=== PATIENT | male | born 1945 | race Caucasian/White ===

== ENCOUNTER 2018-07-06 16:01 | Inpatient (IN) | payer MEDICARE, MEDICAID ==
[~2018-07-06] VITALS: Ht 170.2 cm; Wt 61.5 kg
[2018-07-06] MEDS ORDERED: CEFTRIAXONE 1 G PREMIX 50 ML IV ONE (17:15)
[2018-07-06] MEDS ORDERED: SODIUM CHLORIDE 0.9% 1000ML BAG (SEPSIS BOLUS) IV ONE (17:15)
[2018-07-06 17:44] LABS: CLARITY URINE CLOUDY (CLEAR); COLOR URINE YELLOW (YELLOW); KETONES URINE NEGATIVE (NEGATIVE); LEUKOCYTE ESTERASE URINE TRACE (NEGATIVE); NITRITE URINE POSITIVE (NEGATIVE); OCCULT BLOOD URINE TRACE (NEGATIVE); PROTEIN URINE 1+ (NEGATIVE); SPECIFIC GRAVITY URINE 1.015 (1.005-1.030); UROBILINOGEN URINE 0.2 E.U./dL (0.2-1.0)
[2018-07-06 17:50] LABS: BASOPHILS % 0.3 % (0.0-2.0); CHLORIDE 96 mEq/L (98-107); HEMATOCRIT. 28.3 % (42.0-52.0); HEMOGLOBIN. 9.6 g/dL (14.0-18.0); LYMPHOCYTES % 7.7 % (20.0-50.0); MEAN CORPUSCULAR HEMOGLOBIN 28.8 pg (28.0-32.0); MEAN CORPUSCULAR VOLUME 85.1 fL (80.0-94.0); MEAN PLATELET VOLUME 7.1 fl (7.4-10.4); MONOCYTES % 10.1 % (2.0-8.0); NEUTROPHILS % 80.9 % (40.0-76.0); PLATELET 324 x1000/uL (130-400); RED BLOOD CELL COUNT 3.33 mill/uL (4.7-6.1); RED CELL DISTRIBUTION WIDTH 15.9 % (11.6-14.6)
[2018-07-06] MEDS ORDERED: CLONIDINE 0.1MG TABLET PO PRN (21:15)
[2018-07-06] MEDS ORDERED: HYDROCODONE/ACETAMINOPHEN 5/325MG TABLET PO PRN (21:15)
[2018-07-06] MEDS ORDERED: ONDANSETRON HCL 4MG/2ML INJ IV PRN (21:15)
[2018-07-07] VITALS (7 sets, daily range): BP systolic 100–151; BP diastolic 59–75
[2018-07-07] MEDS: SODIUM CHLORIDE 0.9% 1,000 ML IV SCH ×3 (01:14→21:51)
[2018-07-07] MEDS ORDERED: GLIP10TA10 MT (02:19)
[2018-07-07] MEDS ORDERED: HYDR12.529 PO (02:19)
[2018-07-07] MEDS ORDERED: AMLO5TAB88 PO ×2 (02:22)
[2018-07-07] MEDS ORDERED: [UNRECOGNIZED DRUG - OTHER] PO (02:25)
[2018-07-07] MEDS ORDERED: TAMS0.4C31 PO (02:25)
[2018-07-07] MEDS ORDERED: DEXTROSE 50% WATER 50ML SYRINGE IV PRN (04:15)
[2018-07-07] MEDS: BLOOD SUGAR DIAGNOSTIC STRIP TEST SCH ×4 (06:21→21:36)
[2018-07-07] MEDS: INSULIN LISPRO 100 UNITS/ML SUBCUT SCH ×4 (07:05→21:00)
[2018-07-07 09:04] LABS: BASOPHILS % 0.4 % (0.0-2.0); EOSINOPHILS % 1.1 % (0.0-5.0); HEMATOCRIT. 29.1 % (42.0-52.0); HEMOGLOBIN. 9.8 g/dL (14.0-18.0); MEAN CORPUSCULAR HEMOGLOBIN 28.7 pg (28.0-32.0); MEAN CORPUSCULAR VOLUME 85.6 fL (80.0-94.0); MEAN PLATELET VOLUME 6.7 fl (7.4-10.4); MONOCYTES % 10.5 % (2.0-8.0); PLATELET 330 x1000/uL (130-400)
[2018-07-07] MEDS: THIAMINE HCL 100MG TABLET PO SCH (09:37)
[2018-07-07] MEDS: ENOXAPARIN 40MG/0.4ML SYR SUBCUT SCH (09:37)
[2018-07-07] MEDS: INSULIN GLARGINE UD 100 UNITS/ML SYR SUBCUT SCH ×2 (10:00→21:50)
[2018-07-07 13:16] LABS: ETHANOL BLOOD < 10 mg/dL
[2018-07-07 13:21] LABS: T4 FREE 1.59 ng/dL (0.76-1.46)
[2018-07-07 13:32] LABS: FOLIC ACID (FOLATE) SERUM 14.4 ng/mL (>5.38)
[2018-07-07] MEDS: AMLODIPINE 5MG TABLET PO SCH ×2 (13:46→21:00)
[2018-07-07] MEDS: FERROUS SULFATE 325MG TABLET PO SCH ×2 (13:46→18:51)
[2018-07-07 13:59] LABS: *BARBITURATES SCREEN URINE NEGATIVE (NEGATIVE); *BENZODIAZEPINES SCREEN URINE NEGATIVE (NEGATIVE); *COCAINE SCREEN URINE NEGATIVE (NEGATIVE); METHADONE URINE SCREEN NEGATIVE (NEGATIVE)
[2018-07-07 14:00] LABS: *AMPHETAMINES SCREEN URINE NEGATIVE (NEGATIVE); CANNABINOID URINE SCREEN NEGATIVE (NEGATIVE); OPIATES URINE SCREEN NEGATIVE (NEGATIVE); PHENCYCLIDINE URINE SCREEN NEGATIVE (NEGATIVE)
[2018-07-07] MEDS ORDERED: CEFTRIAXONE 1 G PREMIX 50 ML IV SCH (18:00)
[2018-07-07] MEDS: ACETAMINOPHEN 325MG TABLET PO PRN (18:54)
[2018-07-07] MEDS: TAMSULOSIN HCL 0.4MG SR CAPSULE PO SCH (21:35)
[2018-07-08] VITALS: BP 143/73
[2018-07-08 04:00] VITALS: BP 142/104
[2018-07-08] MEDS: FERROUS SULFATE 325MG TABLET PO SCH ×3 (04:43→17:11)
[2018-07-08] MEDS: SODIUM CHLORIDE 0.9% 1,000 ML IV SCH ×2 (04:43→17:21)
[2018-07-08] MEDS: BLOOD SUGAR DIAGNOSTIC STRIP TEST SCH ×4 (06:03→21:12)
[2018-07-08] MEDS: ACETAMINOPHEN 325MG TABLET PO PRN ×2 (06:03→17:20)
[2018-07-08] MEDS: INSULIN LISPRO 100 UNITS/ML SUBCUT SCH ×4 (06:06→21:12)
[2018-07-08 06:23] LABS: BASOPHILS % 0.5 % (0.0-2.0); HEMATOCRIT. 29.4 % (42.0-52.0); HEMOGLOBIN. 9.7 g/dL (14.0-18.0); LYMPHOCYTES % 11.9 % (20.0-50.0); MEAN CORPUSCULAR HEMOGLOBIN 28.3 pg (28.0-32.0); MEAN CORPUSCULAR VOLUME 85.4 fL (80.0-94.0); MEAN PLATELET VOLUME 6.9 fl (7.4-10.4); MONOCYTES % 10.4 % (2.0-8.0); NEUTROPHILS % 75.2 % (40.0-76.0); PLATELET 375 x1000/uL (130-400); RED BLOOD CELL COUNT 3.44 mill/uL (4.7-6.1); RED CELL DISTRIBUTION WIDTH 16.2 % (11.6-14.6)
[2018-07-08 08:00] VITALS: BP 115/75
[2018-07-08] MEDS: ENOXAPARIN 40MG/0.4ML SYR SUBCUT SCH (08:13)
[2018-07-08] MEDS: TAMSULOSIN HCL 0.4MG SR CAPSULE PO SCH ×2 (08:13→21:09)
[2018-07-08] MEDS: AMLODIPINE 5MG TABLET PO SCH ×2 (08:13→21:09)
[2018-07-08] MEDS: THIAMINE HCL 100MG TABLET PO SCH (08:13)
[2018-07-08] MEDS: INSULIN GLARGINE UD 100 UNITS/ML SYR SUBCUT SCH ×2 (10:41→21:20)
[2018-07-08 20:00] VITALS: BP 130/70
[2018-07-08] MEDS ORDERED: CEFTRIAXONE 1 G PREMIX 50 ML IV SCH (20:00)
[2018-07-09] VITALS: BP 133/52
[2018-07-09] MEDS: SODIUM CHLORIDE 0.9% 1,000 ML IV SCH ×2 (00:44→10:33)
[2018-07-09 04:00] VITALS: BP 131/61
[2018-07-09] MEDS: BLOOD SUGAR DIAGNOSTIC STRIP TEST SCH ×3 (06:23→17:08)
[2018-07-09] MEDS: FERROUS SULFATE 325MG TABLET PO SCH ×3 (06:23→17:15)
[2018-07-09] MEDS: INSULIN LISPRO 100 UNITS/ML SUBCUT SCH ×3 (06:24→17:08)
[2018-07-09 08:00] VITALS: BP 148/78
[2018-07-09] MEDS: THIAMINE HCL 100MG TABLET PO SCH (09:32)
[2018-07-09] MEDS: TAMSULOSIN HCL 0.4MG SR CAPSULE PO SCH (09:32)
[2018-07-09] MEDS: AMLODIPINE 5MG TABLET PO SCH (09:32)
[2018-07-09] MEDS: ENOXAPARIN 40MG/0.4ML SYR SUBCUT SCH (09:34)
[2018-07-09] MEDS: INSULIN GLARGINE UD 100 UNITS/ML SYR SUBCUT SCH (10:17)
[2018-07-09 11:54] LABS: CHLORIDE 105 mEq/L (98-107)
[2018-07-09 11:57] LABS: HEMATOCRIT 29.1 % (42.0-52.0); HEMOGLOBIN 9.7 g/dL (14.0-18.0); MEAN CORPUSCULAR HEMOGLOBIN 28.6 pg (28.0-32.0); MEAN CORPUSCULAR VOLUME 85.9 fL (80.0-94.0); PLATELET 448 x1000/uL (130-400); RED BLOOD CELL COUNT 3.39 mill/uL (4.7-6.1); RED CELL DISTRIBUTION WIDTH 15.7 % (11.6-14.6)
[2018-07-09 12:00] VITALS: BP 116/93
[2018-07-09 16:00] VITALS: BP 134/57
[2018-07-09 17:10] VITALS: BP 134/57
== END 2018-07-09 18:10 | disposition home or self-care (01) | DRG 682 ==
LOC: ER 16:01 → 5WST 18:30 → EDBEDREQ 18:34 → EDBEDREQSVC 18:34 → EDBEDREQTM 18:34 → ENRESERV 19:50
PROVIDERS: ADMIT Internal Medicine Nephrology; ATTEND Internal Medicine Nephrology
DX: N17.9 Acute kidney failure, unspecified (principal); G92 Toxic encephalopathy; I12.9 Hypertensive chronic kidney disease with stage 1 through stage 4 chronic kidney disease, or unspecified chronic kidney disease; N18.9 Chronic kidney disease, unspecified; E11.22 Type 2 diabetes mellitus with diabetic chronic kidney disease; E11.65 Type 2 diabetes mellitus with hyperglycemia; R26.9 Unspecified abnormalities of gait and mobility; E78.00 Pure hypercholesterolemia, unspecified; E78.5 Hyperlipidemia, unspecified; K80.20 Calculus of gallbladder without cholecystitis without obstruction; E86.0 Dehydration; N30.90 Cystitis, unspecified without hematuria; N40.0 Benign prostatic hyperplasia without lower urinary tract symptoms; R29.6 Repeated falls; G90.8 Other disorders of autonomic nervous system; D18.09 Hemangioma of other sites; Z85.528 Personal history of other malignant neoplasm of kidney; Z90.5 Acquired absence of kidney; Z95.810 Presence of automatic (implantable) cardiac defibrillator
CPT/HCPCS: 36415; 70551; 71045; 76705; 76770; 80048; 80305; 80320; 82140; 82607; 82746; 82962; 83036; 83605; 84153; 84439; 84443; 84481; 84484; 85027; 87077; 87186; 93005; 96365; 96375; 97162; 97166; 99285; J0696; J1650; J1815; J7030; G0103; G0480

== ENCOUNTER 2019-02-03 09:04 | Emergency (ER) | payer MEDICARE, MEDICAID ==
[~2019-02-03] VITALS: Ht 167.6 cm; Wt 74.0 kg
[~2019-02-03 09:04] MED LIST: AMLO5TAB88 PO; GLIP10TA10 MT; TAMS0.4C31 PO; [UNRECOGNIZED DRUG - OTHER] PO
[2019-02-03 09:35] VITALS: BP 125/85
== END 2019-02-03 11:58 | disposition home or self-care (01) ==
LOC: ER 09:04
DX: N63.0 Unspecified lump in unspecified breast (principal); E11.9 Type 2 diabetes mellitus without complications; E78.00 Pure hypercholesterolemia, unspecified; I12.9 Hypertensive chronic kidney disease with stage 1 through stage 4 chronic kidney disease, or unspecified chronic kidney disease; N18.9 Chronic kidney disease, unspecified; Z85.3 Personal history of malignant neoplasm of breast
CPT/HCPCS: 76641; 99284

== ENCOUNTER → 2019-07-20 | Outpatient (CLI) | payer MEDICARE, MEDICAID | END | disposition home or self-care (01) | LOC: CT 10:53 | PROVIDERS: ATTEND Internal Medicine Nephrology | DX: K80.20 Calculus of gallbladder without cholecystitis without obstruction (principal); K76.9 Liver disease, unspecified | CPT/HCPCS: 74176 ==

== ENCOUNTER 2021-08-20 06:07 | Inpatient (IN) | payer MEDICARE, MEDICAID ==
[~2021-08-20] VITALS: Ht 170.2 cm; Wt 78.1 kg
[2021-08-20] VITALS (7 sets, daily range): BP systolic 115–166; BP diastolic 54–78
[2021-08-20 07:32] LABS: BASOPHILS % 0.8 % (0.0-2.0); HEMATOCRIT. 32.9 % (42.0-52.0); LYMPHOCYTES % 22.3 % (20.0-50.0); MEAN CORPUSCULAR VOLUME 89.9 fL (80.0-94.0); MEAN PLATELET VOLUME 7.2 fl (7.4-10.4); MONOCYTES % 9.8 % (2.0-8.0); NEUTROPHILS % 64.1 % (40.0-76.0); PLATELET 211 x1000/uL (130-400); RED BLOOD CELL COUNT 3.65 mill/uL (4.7-6.1); RED CELL DISTRIBUTION WIDTH 14.5 % (11.6-14.6)
[2021-08-20 07:37] LABS: CHLORIDE 111 mEq/L (98-107)
[2021-08-20] MEDS ORDERED: MIDAZOLAM HCL 2 MG/2 ML VIAL ONE (08:12)
[2021-08-20] MEDS ORDERED: LIDOCAINE HCL 1% 10 MG/ML 10ML VIAL ONE (08:12)
[2021-08-20] MEDS ORDERED: FENTANYL CITRATE/PF 50MCG/ML 2ML VIAL ONE (08:13)
[2021-08-20] MEDS ORDERED: IODIXANOL 320MG/ML 100 ML BOTTLE IV ONE (08:13)
[2021-08-20] MEDS ORDERED: VERAPAMIL HCL 2.5 MG/1 ML 2ML VIAL IV ONE (08:25)
[2021-08-20] MEDS ORDERED: ERGO2000 (08:46)
[2021-08-20] MEDS ORDERED: ATOR40TA70 PO (08:46)
[2021-08-20] MEDS ORDERED: SITA50TA3 PO (08:46)
[2021-08-20] MEDS ORDERED: LISI-648 PO (08:46)
[2021-08-20] MEDS ORDERED: HEPARIN 1000 UNITS/ML 10ML ONE ×2 (09:09→10:04)
[2021-08-20] MEDS ORDERED: DIPHENHYDRAMINE 50MG/ML VIAL ONE (09:11)
[2021-08-20] MEDS ORDERED: ACETAMINOPHEN 325MG TABLET PO PRN (11:00)
[2021-08-20] MEDS ORDERED: ATROPINE SULFATE 1MG/10ML SYR IV PRN (11:00)
[2021-08-20] MEDS ORDERED: CLOPIDOGREL 75MG TABLET PO NR (11:00)
[2021-08-20] MEDS ORDERED: ASPIRIN 325MG EC TABLET PO NR (11:00)
[2021-08-20] MEDS: AMLODIPINE 10MG TABLET PO SCH (11:27)
[2021-08-20] MEDS ORDERED: NITROGLYCERIN 50MCG/ML 10ML VIAL (CATH LAB) IV ONE (12:49)
[2021-08-20] MEDS ORDERED: NICARDIPINE 100MCG/ML 10ML VIAL (CATH LAB) IV ONE (12:49)
[2021-08-20] MEDS: SODIUM CHLORIDE 0.45% 1,000 ML IV SCH ×2 (14:59→16:22)
[2021-08-20] MEDS ORDERED: LISI-648 MT (16:02)
[2021-08-20] MEDS ORDERED: CARVEDILOL 3.125 MG TABLET PO SCH (17:00)
[2021-08-20] MEDS: ATORVASTATIN CALCIUM 40MG TABLET PO SCH (20:34)
[2021-08-21] VITALS (12 sets, daily range): BP systolic 114–152; BP diastolic 52–89
[2021-08-21 05:23] LABS: BASOPHILS % 0.9 % (0.0-2.0); EOSINOPHILS % 2.6 % (0.0-5.0); HEMATOCRIT. 29.5 % (42.0-52.0); HEMOGLOBIN. 10.1 g/dL (14.0-18.0); LYMPHOCYTES % 18.8 % (20.0-50.0); MEAN CORPUSCULAR HEMOGLOBIN 30.8 pg (28.0-32.0); MEAN PLATELET VOLUME 7.2 fl (7.4-10.4); MONOCYTES % 10.9 % (2.0-8.0); NEUTROPHILS % 66.8 % (40.0-76.0); PLATELET 203 x1000/uL (130-400); RED BLOOD CELL COUNT 3.28 mill/uL (4.7-6.1); RED CELL DISTRIBUTION WIDTH 14.1 % (11.6-14.6)
[2021-08-21] MEDS: ASPIRIN 81MG TABLET PO SCH (09:26)
[2021-08-21] MEDS: METOPROLOL SUCCINATE 50MG ER TABLET PO SCH (09:28)
[2021-08-21] MEDS: CLOPIDOGREL 75MG TABLET PO SCH (09:28)
[2021-08-21] MEDS: AMLODIPINE 10MG TABLET PO SCH (09:28)
[2021-08-21] MEDS: SODIUM CHLORIDE 0.45% 1,000 ML IV SCH ×4 (09:38→18:11)
[2021-08-21] MEDS: ATORVASTATIN CALCIUM 40MG TABLET PO SCH (21:02)
[2021-08-22] VITALS (11 sets, daily range): BP systolic 103–171; BP diastolic 43–75
[2021-08-22] MEDS: SODIUM CHLORIDE 0.45% 1,000 ML IV SCH ×4 (03:15→22:50)
[2021-08-22] MEDS ORDERED: HEPARIN 1000 UNITS/ML 10ML ONE (07:46)
[2021-08-22] MEDS ORDERED: LIDOCAINE HCL 1% 10 MG/ML 10ML VIAL ONE (07:46)
[2021-08-22] MEDS ORDERED: MIDAZOLAM HCL 2 MG/2 ML VIAL ONE (07:46)
[2021-08-22] MEDS ORDERED: FENTANYL CITRATE/PF 50MCG/ML 2ML VIAL ONE (07:46)
[2021-08-22] MEDS ORDERED: IODIXANOL 320MG/ML 100 ML BOTTLE IV ONE (07:47)
[2021-08-22] MEDS: ASPIRIN 81MG TABLET PO SCH (08:18)
[2021-08-22] MEDS: CLOPIDOGREL 75MG TABLET PO SCH (08:19)
[2021-08-22] MEDS: AMLODIPINE 10MG TABLET PO SCH (08:20)
[2021-08-22] MEDS: METOPROLOL SUCCINATE 50MG ER TABLET PO SCH (08:21)
[2021-08-22] MEDS ORDERED: NICARDIPINE 100MCG/ML 10ML VIAL (CATH LAB) IV ONE (08:24)
[2021-08-22] MEDS ORDERED: NITROGLYCERIN 50MCG/ML 10ML VIAL (CATH LAB) IV ONE (08:24)
[2021-08-22] MEDS ORDERED: ATROPINE SULFATE 1MG/10ML SYR ONE (09:05)
[2021-08-22] MEDS ORDERED: DIPHENHYDRAMINE 50MG/ML VIAL ONE (09:06)
[2021-08-22] MEDS ORDERED: HYDRALAZINE 20MG/ML VIAL ONE (09:46)
[2021-08-22] MEDS ORDERED: CLOPIDOGREL 75MG TABLET ONE (10:34)
[2021-08-22] MEDS: ATORVASTATIN CALCIUM 40MG TABLET PO SCH (22:49)
[2021-08-23] VITALS (7 sets, daily range): BP systolic 128–156; BP diastolic 59–73
[2021-08-23] MEDS: SODIUM CHLORIDE 0.45% 1,000 ML IV SCH (06:56)
[2021-08-23] MEDS ORDERED: ASPI-1160 PO (08:25)
[2021-08-23] MEDS ORDERED: CLOP75TA15 PO (08:25)
[2021-08-23] MEDS: CLOPIDOGREL 75MG TABLET PO SCH (09:13)
[2021-08-23] MEDS: AMLODIPINE 10MG TABLET PO SCH (09:13)
[2021-08-23] MEDS: ASPIRIN 81MG TABLET PO SCH (09:13)
== END 2021-08-23 14:05 | disposition home or self-care (01) | DRG 247 ==
LOC: CCL 06:07 → 5EST 06:08
PROVIDERS: ADMIT Internal Medicine; ATTEND Internal Medicine
PROC: 4A023N7 Measurement of Cardiac Sampling and Pressure, Left Heart, Percutaneous Approach (ICD-10-PCS; principal; 2021-08-20)
PROC: B211YZZ Fluoroscopy of Multiple Coronary Arteries using Other Contrast (ICD-10-PCS; 2021-08-20)
PROC: 4A033BC Measurement of Arterial Pressure, Coronary, Percutaneous Approach (ICD-10-PCS; 2021-08-20)
PROC: 027034Z Dilation of Coronary Artery, One Artery with Drug-eluting Intraluminal Device, Percutaneous Approach (ICD-10-PCS; 2021-08-22)
PROC: 02F03ZZ Fragmentation in Coronary Artery, One Artery, Percutaneous Approach (ICD-10-PCS; 2021-08-22)
PROC: B240ZZ3 Ultrasonography of Single Coronary Artery, Intravascular (ICD-10-PCS; 2021-08-22)
PROC: 4A023N7 Measurement of Cardiac Sampling and Pressure, Left Heart, Percutaneous Approach (ICD-10-PCS; 2021-08-22)
PROC: B211YZZ Fluoroscopy of Multiple Coronary Arteries using Other Contrast (ICD-10-PCS; 2021-08-22)
PROC: B41FYZZ Fluoroscopy of Right Lower Extremity Arteries using Other Contrast (ICD-10-PCS; 2021-08-22)
PROC: 02F03ZZ Fragmentation in Coronary Artery, One Artery, Percutaneous Approach (ICD-10-PCS; 2021-08-22)
DX: I25.110 Atherosclerotic heart disease of native coronary artery with unstable angina pectoris (principal); N17.9 Acute kidney failure, unspecified; I47.2 Ventricular tachycardia; I12.9 Hypertensive chronic kidney disease with stage 1 through stage 4 chronic kidney disease, or unspecified chronic kidney disease; Z20.822 Contact with and (suspected) exposure to COVID-19; R00.1 Bradycardia, unspecified; E87.8 Other disorders of electrolyte and fluid balance, not elsewhere classified; E11.22 Type 2 diabetes mellitus with diabetic chronic kidney disease; E78.5 Hyperlipidemia, unspecified; D64.9 Anemia, unspecified; E78.00 Pure hypercholesterolemia, unspecified; Z90.5 Acquired absence of kidney; Z85.528 Personal history of other malignant neoplasm of kidney; N18.32 Chronic kidney disease, stage 3b
CPT/HCPCS: 36415; 80048; 80053; 85025; 85347; 87426; 92928; 92978; 93005; 93306; 93454; 93458; 93571; C1753; C1760; C1769; C1874; C1887; C1893; C9803; J0360; J0461; J1200; J1644; J2250; J3010; J3490; Q9967; C1761